=== PATIENT | female | born 1970 | race Caucasian/White ===

== ENCOUNTER → 2021-01-03 | Outpatient (CLI) | payer BC ==
--- NOTE | 2021-01-03 09:23 | KCIC ---
Bilateral digital screening mammograms with 3-D tomosynthesis: Reason for examination: Routine baseline screening. Bilateral mammograms in CC and oblique projections were obtained with 2-D imaging and 3-D tomosynthes is imaging on a Siemens Inspiration unit and reviewed on the workstation. Interpretation was made wit h the benefit of CAD. The skin and nipples show no abnormalities. No abnormal axillary lymph nodes are seen. The breast par enchyma shows scattered fatty and fibroglandular density. (Breast density: Category B.) There is a 6. 3 mm circumscribed nodule at the 3:30 position of the left breast 4 cm posterior to the nipple. Furth er evaluation with ultrasound is recommended. There are no other dominant masses, suspicious calcific ations or architectural distortion. Impression: 6.3 mm nodule at the 3:30 position of the left breast 4 cm from the nipple. Recommend further evaluat ion with ultrasound. BI-RAD Category 0: Incomplete. Needs additional imaging evaluation. "Our facility is accredited by the [employer] Mammography Program." This patient's information has been entered into a reminder system for the patient to be notified wit h the results of her examination and a target date for the next mammogram. Electronically signed by: Valerie Bryan MD (01/03/2021 9:20 AM) [id number]
== END ==
LOC: KCIC US 07:53
PROVIDERS: ATTEND Family Medicine
DX: Z12.31 Encounter for screening mammogram for malignant neoplasm of breast (principal); R74.01 Elevation of levels of liver transaminase levels
CPT/HCPCS: 77063; 77067

== ENCOUNTER → 2021-01-04 | Outpatient (CLI) | payer BC ==
--- NOTE | 2021-01-04 09:13 | RAD ---
EXAMINATION: US ABDOMEN COMPLETE INDICATION: 50 years, Female, elevated liver function test. COMPARISON: None TECHNIQUE: Grayscale, color Doppler and limited spectral Doppler images of the abdomen were obtained. FINDINGS: LIVER: SIZE (LENGTH): 18.8 cm. ECHOGENICITY: Increased. PARENCHYMA: Heterogeneous echotexture. No discrete focal lesion. INTRAHEPATIC BILE DUCTS: Nondilated. PORTAL VEIN: Patent with normal hepatopedal flow. GALLBLADDER: GALLBLADDER WALL THICKNESS: 2 mm MORPHOLOGY: Normal morphology. No pericholecystic free fluid. LUMEN: Normal. COMMON BILE DUCT DIAMETER: 3.5 mm, normal. RIGHT KIDNEY: MEASURES: 12.1 cm in length. MORPHOLOGY/PARENCHYMA: Normal corticomedullary differentiation with no shadowing calculus or discrete masses. COLLECTING SYSTEM: No hydronephrosis. LEFT KIDNEY: MEASURES: 11.5 cm in length MORPHOLOGY/PARENCHYMA: Normal corticomedullary differentiation with no shadowing calculus or discrete masses. COLLECTING SYSTEM: No hydronephrosis. SPLEEN: SIZE (LENGTH): 12.5 cm PARENCHYMA: Unremarkable. PANCREAS: VISUALIZED PORTIONS: Entire APPEARANCE: Within normal limits. OTHER: RETROPERITONEUM, INFERIOR VENA CAVA: Normal caliber. AORTA: Normal caliber measures up to Field 2 cm FLUID:No free fluid. IMPRESSION: Mild hepatomegaly with moderate diffuse steatosis. Electronically signed by: Luis Roy MD (01/04/2021 9:10 AM) [id number]
== END ==
LOC: US 08:30
PROVIDERS: ATTEND Family Medicine
DX: R16.0 Hepatomegaly, not elsewhere classified (principal); K76.0 Fatty (change of) liver, not elsewhere classified
CPT/HCPCS: 76700

== ENCOUNTER → 2021-01-17 | Outpatient (CLI) | payer BC ==
--- NOTE | 2021-01-17 17:01 | KCIC ---
Procedure: Targeted left breast ultrasound INDICATION: Screening mammogram shows a 6 millimeter mass in the 3:30 position of the left breast, 4 cm posterior to the nipple. COMPARISON: Mammogram from 01/03/2021. The area of concern, lateral aspect of the left breast, and left axilla were imaged. FINDINGS: In the 3:30 position, 4 cm from the nipple, there is a 6 mm cyst with thin septation. This correlates with the small mass seen on mammogram. There is no left axillary adenopathy. IMPRESSION: Small cyst in the 3:30 position of the left breast which correlates mass seen on mammogra m. ASSESSMENT: BI-RADS 2. Benign findings. Recommendations: Routine screening mammograms. Electronically signed by: Migdalia Kirkland MD (01/17/2021 4:58 PM) [email or web address]
== END ==
LOC: KCIC US 08:05
PROVIDERS: ATTEND Family Medicine
DX: N60.02 Solitary cyst of left breast (principal)
CPT/HCPCS: 76641